=== PATIENT | female | born 1975 | race Caucasian/White ===

== ENCOUNTER 2018-11-22 15:50 | Emergency (ER) | payer SELFPAY ==
[~2018-11-22] VITALS: Ht 162.6 cm; Wt 65.9 kg
[~2018-11-22 15:50] MED LIST: CYCL-1 PO; DIPH-423 PO; EPIN0.3A3 IM; POLY119P2 PO; PRED50TA PO; RANI-290 PO
[2018-11-22] MEDS ORDERED: dexamethasone sod phosphate 10mg/ml inj IV STA (16:16)
[2018-11-22] MEDS ORDERED: LORazepam 2 mg/ml vial IV ONE (16:20)
[2018-11-22] MEDS ORDERED: ketorolac trometh. 30mg/ml inj. IV ONE (16:20)
[2018-11-22] MEDS ORDERED: normal saline 1000ML IV soln IVB ONE (16:20)
[2018-11-22] MEDS ORDERED: metoclopramide 5 mg/ml inj IV ONE (16:20)
[2018-11-22 17:05] LABS: BASOPHILS % (AUTO) 0.4 % (0-1); EOSINOPHILS # (AUTO) 0.1 X10'3 (0-0.9); EOSINOPHILS % (AUTO) 0.8 % (0-6); HEMATOCRIT 39.5 % (35.0-45.0); HEMOGLOBIN 13.4 g/dl (12.0-16.0); LYMPHOCYTES # (AUTO) 2.3 X10'3 (1.1-4.8); LYMPHOCYTES % (AUTO) 20.3 % (21-51); MEAN CORPUSCULAR HEMOGLOBIN 28.5 PG (27.0-31.0); MEAN CORPUSCULAR VOLUME 83.9 FL (78-98); MEAN PLATELET VOLUME 8.3 FL (7.4-10.4); MONOCYTES # (AUTO) 0.7 X10'3 (0-0.9); MONOCYTES % (AUTO) 5.9 % (2-12); NEUTROPHILS # (AUTO) 8.1 X10'3 (1.8-7.7); NEUTROPHILS % (AUTO) 72.6 % (42-75); PLATELET COUNT 331 X10'3 (140-440); RED BLOOD COUNT 4.71 X10'6 (4.20-5.60); RED CELL DISTRIBUTION WIDTH 12.8 % (11.5-14.5); WHITE BLOOD COUNT 11.2 X10'3 (4.5-11.0)
[2018-11-22 17:17] LABS: ALANINE AMINOTRANSFERASE 21 U/L (12-78); ALBUMIN 3.8 G/DL (3.4-5.0); ALBUMIN/GLOBULIN RATIO 1.2 (1.1-1.5); ALKALINE PHOSPHATASE 96 IU/L (46-116); ANION GAP 9 (8-16); ASPARTATE AMINO TRANSFERASE 10 U/L (10-37); BILIRUBIN,TOTAL 0.2 MG/DL (0.1-1.0); BLOOD UREA NITROGEN 25 MG/DL (7-18); BUN/CREATININE RATIO 28.1 (6.6-38.0); CALCIUM 9.1 MG/DL (8.5-10.1); CHLORIDE 106 MMOL/L (99-107); CREATININE 0.89 MG/DL (0.40-0.90); GLUCOSE 93 MG/DL (70-104); POTASSIUM 3.8 MMOL/L (3.5-5.1); SODIUM 141 MMOL/L (135-145); TOTAL CARBON DIOXIDE 25.9 MMOL/L (24-32); TOTAL PROTEIN 6.9 G/DL (6.4-8.2); eGFR 70 ML/MIN
[2018-11-22 17:24] LABS: URINE HCG NEGATIVE (NEG)
[2018-11-22 17:30] LABS: CLARITY,URINE SLIGHTLY CLOUDY (Clear); COLOR,URINE YELLOW (Yellow); GLUCOSE, URINE NEGATIVE (Neg); KETONES,URINE NEGATIVE (Neg); LEUKOCYTE ESTERASE ,URINE NEGATIVE (Neg); NITRITES, URINE POSITIVE (Neg); OCCULT BLOOD,URINE SMALL (Neg); PROTEIN,URINE NEGATIVE (Neg); UROBILINOGEN,URINE 0.2 E.U/dL (0.2-1.0)
[2018-11-22 17:33] LABS: UA COLLECTION TYPE NON-SPECIFIED
[2018-11-22 17:36] LABS: BACTERIA,URINE 4+ /HPF (Neg); RBC,URINE 0-2 /HPF (0-2); SQUAMOUS EPITHELIAL CELL,UR FEW /LPF (FEW); WBC,URINE 0-4 /HPF (0-4)
[2018-11-22] MEDS ORDERED: SULF1TAB49 PO (17:40)
[2018-11-22 17:51] VITALS: BP 107/66
== END 2018-11-22 18:11 | disposition home or self-care (01) ==
LOC: ER 15:51
DX: G43.909 Migraine, unspecified, not intractable, without status migrainosus (principal); N39.0 Urinary tract infection, site not specified; E86.0 Dehydration; Z87.442 Personal history of urinary calculi; Z98.890 Other specified postprocedural states; Z88.0 Allergy status to penicillin; Z79.899 Other long term (current) drug therapy
CPT/HCPCS: 36415; 80053; 81001; 81025; 85025; 87077; 87088; 87186; 93005; 96361; 96374; 96375; 99284; J1100; J1885; J2060; J2765; J7030